=== PATIENT | female | born 1965 | race Two or more races ===

== ENCOUNTER → 2023-03-19 06:00 | Outpatient (CLI) | payer OTHER ==
[~2023-03-19 06:00] MED LIST: ALLEGRA ALLERG180 MG PO; CIPRO500 MG PO; CLONAZEPAM0.5 MG PO; CYMBALTA60 MG PO
== END | disposition home or self-care (01) ==
LOC: LAB 06:00 → ADM 11:15 → EDSTATUS 03-25 11:15 → CIR.AMB 03-25 11:15
PROVIDERS: ATTEND Obstetrics & Gynecology
DX: Z03.818 Encounter for observation for suspected exposure to other biological agents ruled out (principal); Z20.828 Contact with and (suspected) exposure to other viral communicable diseases